=== PATIENT | male | born 1980 | race Caucasian/White ===

== ENCOUNTER 2017-11-05 04:40 | Day surgery (SDC) | payer OTHER ==
[~2017-11-05 04:40] MED LIST: LOVASTATIN10 MG PO; ODEFSEY TABLET1 EACH PO; SYNTHROID100 MCG PO
== END 2017-11-05 12:20 | disposition home or self-care (01) ==
LOC: CIR.AMB 04:40
DX: K80.10 Calculus of gallbladder with chronic cholecystitis without obstruction (principal)